=== PATIENT | male | born 1950 | race Caucasian/White ===

== ENCOUNTER 2023-02-09 05:19 | Emergency (ER) | payer MEDICARE, BC ==
[~2023-02-09] VITALS: Ht 188 cm; Wt 85.3 kg
[2023-02-09] MEDS ORDERED: LIDOCAINE 2% (GLYDO= UROJET) 10 ML JELLY MM ONE ×2 (05:42→05:45)
[2023-02-09] MEDS ORDERED: KETOROLAC TROMETHAMINE 15 MG INJ IVP ONE (05:45)
[2023-02-09] MEDS ORDERED: ONDANSETRON 4 MG/2 ML VIAL IV ONE (05:45)
[2023-02-09] MEDS ORDERED: HYDROMORPHONE 1 MG/1 ML DISP.SYRIN IV ONE (05:45)
[2023-02-09] MEDS ORDERED: ONDANSETRON 4 MG/2 ML VIAL ONE (05:46)
[2023-02-09] MEDS ORDERED: KETOROLAC TROMETHAMINE 15 MG INJ ONE (05:46)
[2023-02-09] MEDS ORDERED: HYDROMORPHONE 1 MG/1 ML DISP.SYRIN ONE (05:46)
[2023-02-09 06:14] LABS: BASOPHILS % (AUTO) 0.2 % (0.0-2.0); EOSINOPHILS # (AUTO) 0.1 K/uL (0.0-0.7); EOSINOPHILS % (AUTO) 0.5 % (0.0-7.0); HEMATOCRIT 41.7 % (36.7-47.1); HEMOGLOBIN 14.3 g/dL (12.5-16.3); LYMPHOCYTES # (AUTO) 1.6 K/uL (0.8-4.8); LYMPHOCYTES % (AUTO) 14.1 % (20.5-51.5); MEAN CORPUSCULAR HEMOGLOBIN 32.1 uug (23.8-33.4); MEAN CORPUSCULAR HGB CONC 34 g/dL (32.5-36.3); MONOCYTES # (AUTO) 0.4 K/uL (0.1-1.30); MONOCYTES % (AUTO) 3.5 % (0.0-11.0); NEUTROPHILS # (AUTO) 9.2 K/uL (1.8-8.9); NEUTROPHILS % (AUTO) 81.7 % (38.5-71.5); PLATELET COUNT (AUTO) 332 K/uL (152-348); RED BLOOD CELL COUNT(AUTO) 4.44 MIL/uL (4.06-5.63); RED CELL DISTRIBUTION WIDTH 13.6 % (12.1-16.2); WHITE BLOOD COUNT (AUTO) 11.3 K/uL (3.6-10.2)
[2023-02-09 06:36] LABS: ALANINE AMINOTRANSFERASE 33 U/L (16-63); ALBUMIN 3.9 g/dL (3.4-5.0); ALKALINE PHOSPHATASE 95 U/L (50-136); ASPARTATE AMINOTRANSFERASE 18 U/L (15-37); BILIRUBIN,TOTAL 1.4 mg/dL (0.2-1.0); CALCIUM 8.8 mg/dL (8.5-10.1); CARBON DIOXIDE 28 mmol/L (21-32); CHLORIDE 101 mmol/L (98-107); CREATININE 1.4 mg/dL (0.6-1.3); GLUCOSE 136 mg/dL (74-106); SODIUM SERUM 142 mmol/L (136-145); TOTAL PROTEIN, SERUM 7.3 g/dL (6.4-8.2); UREA NITROGEN, BLOOD 20 mg/dL (7-18)
[2023-02-09] MEDS ORDERED: TAMS-3 PO ×2 (07:08→10:26)
[2023-02-09] MEDS ORDERED: ATOR10TA PO (07:08)
[2023-02-09] MEDS ORDERED: LISI20TA30 PO (07:08)
[2023-02-09] MEDS ORDERED: OMEP40CA21 PO (07:12)
[2023-02-09 08:01] LABS: *BILIRUBIN,URIN NEGATIVE (NEGATIVE); *BLOOD, URINE 2+ (NEGATIVE); *CLARITY,URINE CLEAR (CLEAR); *COLOR,URINE YELLOW (YELLOW); *KETONES,URINE 2+ (NEGATIVE); *PROTEIN,URINE TRACE (NEGATIVE); LEUKOCYTE ESTERASE ,URINE NEGATIVE (NEGATIVE); NITRITE, URINE NEGATIVE (NEGATIVE); UGLUCOSE NEGATIVE (NEGATIVE)
[2023-02-09 08:57] LABS: RBC,URINE 80-100 /HPF (0-3)
[2023-02-09 08:58] LABS: BACTERIA,URINE MODERATE /HPF (NONE SEEN); SQUAMOUS EPITHELIAL CELL,UR FEW /HPF (NONE SEEN)
[2023-02-09] MEDS ORDERED: IBUPROFEN 800 MG TABLET ONE (10:24)
[2023-02-09] MEDS ORDERED: IBUP-1957 PO (10:26)
[2023-02-09] MEDS ORDERED: IBUPROFEN 800 MG TABLET PO ONE (10:30)
[2023-02-09 10:42] VITALS: BP 160/76; O2SAT 97
== END 2023-02-09 11:04 | disposition home or self-care (01) ==
LOC: ER 05:25
DX: N13.30 Unspecified hydronephrosis (principal); N20.2 Calculus of kidney with calculus of ureter; Z79.1 Long term (current) use of non-steroidal anti-inflammatories (NSAID); Z79.899 Other long term (current) drug therapy
CPT/HCPCS: 99285; 74176; 96374; 96375; 80053; 81001; 85025; 36415; 51702; J1885; J2405; J1170; A4663